=== PATIENT | male | born 1935 | race Caucasian/White ===

== ENCOUNTER 2020-09-08 13:09 | Emergency (ER) | payer MEDICARE ==
[2020-09-08 16:27] LABS: BASOPHIL 0.7 % (0-2); EOSINOPHIL 1.7 % (0-7); HCT 44.1 % (42.0-52.0); HGB 14.3 g/dl (13.2-18.0); LYMPHOCYTE 19.5 % (15-48); MCH 32.6 pg (25.0-31.0); MCHC 32.4 g/dL (32.0-36.0); MCV 100.5 fL (78.0-100.0); MONOCYTE 7.9 % (0-12); NEUTROPHIL 70.1 % (41-80); NRBC 0; PLT 172 K/uL (150-400); RBC 4.39 M/uL (4.70-6.00); RDW 12.5 % (11.5-14.0); WBC 6.9 K/uL (4.0-10.5)
[2020-09-08 16:49] LABS: BILIRUBIN - TOTAL 0.5 mg/dL (0.2-1.0); GLOBULIN (CALCULATION) 3.5 g/dL; POTASSIUM 4.2 mmol/L (3.5-5.1); TOTAL PROTEIN 7.5 g/dL (6.4-8.2)
[2020-09-08 16:59] LABS: BILIRUBIN NEGATIVE (NEGATIVE); BLOOD NEGATIVE Ery/uL (NEGATIVE); CLARITY CLEAR (CLEAR); COLOR YELLOW (YELLOW); GLUCOSE (U) NORMAL (NORMAL); LEUKOCYTES NEGATIVE Leu/uL (NEGATIVE); NITRITE NEGATIVE (NEGATIVE); PROTEIN NEGATIVE (NEGATIVE); UROBILINOGEN 0.2 mg/dL (0.2-1.0); pH 7.5 (5.0-9.0)
[2020-09-08] MEDS ORDERED: TESSALON PERLE100 MG PO (18:29)
== END 2020-09-08 19:08 | disposition home or self-care (01) ==
LOC: FER 13:09
PROVIDERS: Nurse Practitioner Family
DX: R05 Cough (principal); I10 Essential (primary) hypertension; I48.91 Unspecified atrial fibrillation; J44.9 Chronic obstructive pulmonary disease, unspecified; E78.5 Hyperlipidemia, unspecified; N28.9 Disorder of kidney and ureter, unspecified; K76.0 Fatty (change of) liver, not elsewhere classified; Z98.890 Other specified postprocedural states; Z79.899 Other long term (current) drug therapy; Z79.01 Long term (current) use of anticoagulants
CPT/HCPCS: 36415; 71260; 80053; 81003; 85025; J2930; J7030